=== PATIENT | female | born 2000 | race Caucasian/White ===

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

== ENCOUNTER 2022-12-29 11:24 | Emergency (ER) | payer MEDICAID, SELFPAY ==
[2022-12-29 11:25] VITALS: BP 133/78; PULSE 105; RESP 18; TEMP 36.2; O2SAT 100; BMI 24.2
--- NOTE | 2022-12-29 11:46 | EKG12_ITS ---
Test Reason : CP Blood Pressure : / mmHG Vent. Rate : 096 BPM Atrial Rate : 096 BPM P-R Int : 134 ms QRS Dur : 072 ms QT Int : 334 ms P-R-T Axes : 047 049 024 degrees QTc Int : 421 ms Normal sinus rhythm Septal infarct , age undetermined Abnormal ECG Confirmed by JHONATAN BOWENS, DEZ ([id number]), editor at large CRISTY SILVER ([id number]) on 01/01/2023 1:54:59 PM Referred By: ABUNDIO Confirmed By:DEZ ISRAEL MD
--- NOTE | 2022-12-29 11:48 | EDS_ITS ---
HPI History of Present Illness Chief Complaint: Chest Pain Informant: patient Narrative Narrative: Patient presents with chest pain. Patient states that she has had a soreness or tightness across her anterior chest for about 3 days. It is never gone away. It is a little bit worse with a deep breath. She is not actually short of breath but taking a deep breath does increase the pain. She cannot think of any injury. She has no palpitations. No coughing. She has had some mild URI symptoms but not the cough. No hemoptysis. No nausea vomiting. No back pain at any time. She states sometimes her whole body feels tight. The symptoms have never gone away. She has no high blood pressure diabetes or cholesterol. She does not know her family history as she is adopted. She has not had any recent travel surgery immobilization or personal history of DVT or PE. She has no leg pain or swelling. Patient does get aches and pains occasionally and sees chiropractor but has no known cause for this. She reportedly had stress test and echo several years ago but not exactly sure of the results. I looked on our system and do not find these [facility] Medical History Anxiety Asthma Back pain Cardiology follow-up encounter History of ganglion cyst History of pain when walking History of stress test Hx of echocardiogram Non-smoker Septal defect, heart Home Medications albuterol sulfate 90 mcg/actuation aerosol inhaler 2 puff IH Q4H PRN PRN Wheezing 05/25/20 [History Last Taken Unknown] Allergy/AdvReac Type Severity Reaction Status Date / Time No Known Allergies Allergy Verified 12/06/21 11:32 Family History adopted Social History (Updated 12/29/22 @ 13:10 by Izzy Ornelas) adopted: Yes Smoking Status: Never smoker ROS ROS ED Constitutional Constitutional ED: Denies chills, fever(s) or sweats ENT ENT ED: Reports rhinorrhea and other Details: Mild nasal congestion and rhinorrhea. ; Denies sore throat Cardiovascular Cardiovascular: Reports as per HPI Respiratory/Chest Respiratory/Chest: Denies cough or dyspnea Gastrointestinal Gastrointestinal: Denies diarrhea, nausea or vomiting Genitourinary Genitourinary ED: Denies hematuria Musculoskeletal Musculoskeletal: Reports myalgias; Denies back pain or neck pain Integumentary Denies Abrasions or rash Neurologic Neurologic: Denies headache(s), paresthesias or weakness Endocrine Endocrinology: Denies polydipsia or polyuria Allergic/Immunologic Allergic/Immunologic ED: Denies urticaria EXAM Physical Exam Narrative Exam Narrative: Patient is awake alert no acute distress. She is on the phone sitting comfortably in bed when I walked in the room. She looks nontoxic. HEENT shows no trauma or pallor. Mucous membranes are moist. Eyes show no icterus or pallor. Lungs are completely clear. There is no chest wall tenderness. There is no apparent pain with a deep breath watching the patient. But she does state that it is a little sore when she takes a deep breath. Her heart is regular with a rate of about 90-95. I do not hear any muffled tones or murmur or gallop. Peripheral pulses are equal and normal x4. Abdomen is soft and completely nontender. Normal bowel sounds and nondistended shows no CVA or suprapubic tenderness Back shows no back or spinal tenderness Extremities show no edema or cords. No mottling. No asymmetry. No tenderness along deep venous system or distended veins. Neurologically she is awake alert appropriate and looks calm. Const Vital Signs: 12/29/22 11:25 12/29/22 13:08 Temperature 97.2 F L Temperature Source Temporal Pulse Rate 105 H 87 Respiratory Rate 18 Blood Pressure 133/78 H Blood Pressure Mean 96 Pulse Ox 100 97 Oxygen Delivery Method Room Air MDM MDM MDM Narrative Medical decision making narrative: My independent interpretation of the patient's single view chest x-ray shows no pneumothorax infiltrate abnormal mediastinum or cardiac silhouette. Radiology's report is normal x-ray examination of the chest. CBC shows mild elevation white count. This is nonspecific. D-dimer is unmeasurable below are the lowest level. Troponin is negative also. Electrolytes are normal other than potassium at 3.2 which should self correct with diet. I went talk to the patient again. Her mother is here. Her mother states she has had cold type flu symptoms. Its likely the source of her symptoms but she is eating and drinking and feeling well and not febrile. I think Tylenol rest is appropriate. We did discussed reasons to return that would include worsening pain, lightheadedness, passing out or other acute process. Even though her first heart rate was elevated at 105, she has no known risk factor for pulmonary embolus, no hemoptysis, no tachypnea or hypoxia. Repeat heart rate is normal. D-dimer is negative. I do not think that a CT angiogram of the chest is needed for these reasons. Lab Data Labs: Laboratory Results - last 24 hr 12/29/22 12/29/22 12/29/22 12:15 12:15 12:15 WBC 15.4 H RBC 4.64 Hgb 13.8 Hct 40.6 MCV 87.5 MCH 29.7 MCHC 34.0 RDW Std Deviation 38.2 RDW Coeff of Lesa 11.9 Plt Count 179 MPV 9.6 Immature Gran % (Auto) 0.600 Neut % (Auto) 81.6 H Lymph % (Auto) 10.4 L [place] % (Auto) 6.6 Eos % (Auto) 0.5 Baso % (Auto) 0.3 Absolute Neuts (auto) 12.6 H Absolute Lymphs (auto) 1.60 Nucleated RBC % 0 D-Dimer Quant (PE/DVT) < 0.27 L Sodium 138 Potassium 3.2 L Chloride 103 Carbon Dioxide 26.0 Anion Gap 9 BUN 11 Creatinine 0.73 Estim Creat Clear Calc 106.15 Est GFR (MDRD) Af Amer 130 Est GFR (MDRD) Non-Af 108 BUN/Creatinine Ratio 15.0 Glucose 89 Calcium 9.1 Troponin I High Sens < 3 L Radiography Diagnostic Testing: Clinical Impression(s) from Imaging Studies Chest X-Ray 12/29/22 12:20 IMPRESSION: Normal x-ray examination of the chest. Electronically Signed: Jonny Portillo MD at 12:34 EST , EKG Initial EKG: Comments: My independent interpretation of the patient's EKG done for chest pain shows a normal sinus rhythm with overall rate of 96. No ectopy. No acute ST elevation or depression. OR interval, QRS duration and QTc are normal. Discharge Plan Triage Chief Complaint: Chest Pain ED Provider: Kirk Gregory Dx/Rx/DC Orders Clinical Impression: Chest pain, URI (upper respiratory infection) Instructions: ED Chest Pain, Uncertain Cause Prescriptions: No Action albuterol sulfate 90 mcg/actuation HFA aerosol inhaler 2 puff IH Q4H PRN PRN (Reason: Wheezing) Label Comments: inhale 2 puffs by mouth and INTO THE LUNGS every 4 hours if neede... (REFER TO PRESCRIPTION NOTES). Primary Care Provider: Clinton Sal Referrals: Lia Shell MD [Non-Staff] - 3-5 Days if not improving Disposition Disposition: Home, Self Care
--- NOTE | 2022-12-29 12:20 | RAD_ITS ---
STUDY: X-RAY CHEST REASON FOR EXAM: Female, 22 years old. Chest pain TECHNIQUE: Single AP portable view of the chest. COMPARISON: None. FINDINGS: EKG electrodes are seen. The lungs are clear and expanded. There is no demonstrated pleural abnormality. Normal size heart. Normal mediastinum and bhavani. Normal visualized pulmonary arteries. Normal visualized aortic arch and descending thoracic aorta. Normal visualized thoracic spine. Normal visualized ribs, clavicles, and shoulders. There is no demonstrated abnormality of the visualized soft tissue structures of the upper abdomen. RAD/Chest 1 View (Portable) IMPRESSION: Normal x-ray examination of the chest. Electronically Signed: Jonny Portillo MD at 12:34 EST ,
[2022-12-29 12:22] LABS: Absolute Neutrophil Count 12.6 X10^3/uL (2.0-7.7); Basophil# 0.04 X10^3/uL; Basophil% 0.3 % (0-1); Eosinophil# 0.07 X10^3/uL; Eosinophils% 0.5 % (0-5); Hematocrit 40.6 % (37-47); Hemoglobin 13.8 g/dL (12.0-15.0); Lymphocyte % 10.4 % (19-41); Mean Corpuscular Hgb 29.7 pg (27.0-32.0); Mean Corpuscular Volume 87.5 fL (81-99); Mean Platelet Vol. 9.6 fl (6.2-12.0); Monocyte# 1.02 X10^3/uL; Monocyte% 6.6 % (0-10); NRBC Flagged by Analyzer 0 % (0-5); Neutrophil % 81.6 % (47-70); Platelet Count 179 K/mm3 (150-450); RBC Distribution Width CV 11.9 % (11.6-14.6); RBC Distribution Width SD 38.2 fl (35.1-43.9); Red Blood Count 4.64 M/mm3 (4.2-5.4); White Blood Count 15.4 K/mm3 (4.4-11.0)
[2022-12-29 12:40] LABS: D-Dimer Quantitative (DVT/PE) < 0.27 FEU/ug/m (0.27-0.49)
[2022-12-29 12:50] LABS: Anion Gap 9 (5-15); BUN 11 mg/dL (7-18); Calcium,Total 9.1 mg/dL (8.5-10.1); Chloride 103 mmol/L (98-107); Creatinine, Serum 0.73 mg/dL (0.55-1.02); EST Glomerular Filtration Rate 108 mL/min (>60); Est Glom Filt Rate - Afr Amer 130 mL/min (>60); Estimated Creatinine Clearance 106.15 ml/min; Glucose 89 mg/dL (74-106); Potassium 3.2 mmol/L (3.5-5.1); Sodium Level 138 mmol/L (136-145); Troponin-I HS < 3 pg/mL (3.0-54.0)
[2022-12-29 13:08] VITALS: PULSE 87; O2SAT 97
== END 2022-12-29 13:28 | disposition home or self-care (01) ==
PROVIDERS: Emergency Provider Emergency Medicine; PCP Family Medicine; Visit Provider Emergency Medicine
DX: R07.9 Chest pain, unspecified (principal); J06.9 Acute upper respiratory infection, unspecified; J45.909 Unspecified asthma, uncomplicated; Z79.899 Other long term (current) drug therapy
CPT/HCPCS: 71045; 80048; 84484; 85025; 85379; 93005; 99284

== ENCOUNTER → 2023-01-23 | Outpatient (CLI) | payer MEDICAID, SELFPAY ==
[2023-01-23 09:54] LABS: Absolute Lymphocyte Count 2.66 X10^3/uL (0.83-4.51); Absolute Neutrophil Count 4.6 X10^3/uL (2.0-7.7); Basophil# 0.03 X10^3/uL; Basophil% 0.4 % (0-1); Eosinophil# 0.14 X10^3/uL; Eosinophils% 1.7 % (0-5); Hematocrit 41.4 % (37-47); Hemoglobin 13.9 g/dL (12.0-15.0); Lymphocyte # 2.66 X10^3/ul (0.83-4.51); Lymphocyte % 32.8 % (19-41); Mean Corp Hgb Conc 33.6 g/dL (32-36); Mean Corpuscular Hgb 29.5 pg (27.0-32.0); Mean Corpuscular Volume 87.9 fL (81-99); Monocyte# 0.66 X10^3/uL; Monocyte% 8.1 % (0-10); NRBC Flagged by Analyzer 0 % (0-5); Neutrophil # 4.57 X10^3/uL (2.7-7.7); Neutrophil % 56.5 % (47-70); Platelet Count 260 K/mm3 (150-450); RBC Distribution Width CV 12.2 % (11.6-14.6); RBC Distribution Width SD 39.1 fl (35.1-43.9); Red Blood Count 4.71 M/mm3 (4.2-5.4); White Blood Count 8.1 K/mm3 (4.4-11.0)
[2023-01-23 10:30] LABS: Anion Gap 6 (5-15); BUN 13 mg/dL (7-18); BUN/Creat Ratio 17.5 RATIO (10-20); Calcium,Total 8.9 mg/dL (8.5-10.1); Chloride 106 mmol/L (98-107); Cholesterol 216 mg/dL (200); Creatinine, Serum 0.74 mg/dL (0.55-1.02); EST Glomerular Filtration Rate 106 mL/min (>60); Est Glom Filt Rate - Afr Amer 128 mL/min (>60); Glucose 91 mg/dL (74-106); High Density Lipoprotein 56 mg/dL; Potassium 3.8 mmol/L (3.5-5.1); Sodium Level 136 mmol/L (136-145); Triglycerides 69 mg/dL; Very Low Density Lipoprotein 14 mg/dL (5-40)
== END | disposition home or self-care (01) ==
LOC: MTLAB 07:11
PROVIDERS: PCP Family Medicine; Referring Provider Family Medicine; Visit Provider Family Medicine
DX: Z00.00 Encounter for general adult medical examination without abnormal findings (principal)
CPT/HCPCS: 36415; 80048; 80061; 85025

== ENCOUNTER 2023-05-05 13:44 | Emergency (ER) | payer OTHER, MEDICAID, SELFPAY ==
[2023-05-05 13:45] VITALS: BP 113/68; PULSE 90; RESP 14; TEMP 36.6; O2SAT 100; BMI 24.1
--- NOTE | 2023-05-05 14:00 | RAD_ITS ---
INDICATION: injury EXAMINATION/TECHNIQUE: X-RAY - LEFT XR Forearm 2 Views 2 VIEWS COMPARISON: FINDINGS: SOFT TISSUES: No soft tissue swelling or gas. No radiopaque foreign body. BONES/JOINTS: No acute fracture or subluxation.. Normal alignment. Preservation of the joint space.. No sclerotic or destructive changes observed. RAD/Forearm 2 Views IMPRESSION: Negative. Electronically Signed: Elias Urban MD at 14:32 EDT ,
--- NOTE | 2023-05-05 14:00 | EDS_ITS ---
HPI <MYRNA Pavon - Last Filed: 05/05/23 16:24> History of Present Illness Chief Complaint: Upper Extremity Injury Narrative Narrative: Patient presenting today with pain to her left arm that started earlier this afternoon when she was at work and a cow came running towards her and smashed her L arm into a fence. She reports decreased range of motion to her left arm due to pain. She also reports paresthesias in her left fourth and fifth fingers. She did not hit her head and denies other injury. PFSH <MYRNA Pavon - Last Filed: 05/05/23 16:24> [facility] Medical History Anxiety Asthma Back pain Cardiology follow-up encounter History of ganglion cyst History of pain when walking History of stress test Hx of echocardiogram Non-smoker Septal defect, heart Home Medications albuterol sulfate 90 mcg/actuation aerosol inhaler 2 puff IH Q4H PRN PRN Wheezing 05/25/20 [History Last Taken Unknown] Allergy/AdvReac Type Severity Reaction Status Date / Time No Known Allergies Allergy Verified 12/06/21 11:32 Social History adopted: Yes Smoking Status: Current every day smoker tobacco type: e-cigarettes ROS <MYRNA Pavon - Last Filed: 05/05/23 16:24> ROS ED Constitutional Constitutional ED: Denies chills, fever(s) or sweats Eyes Eyes: Denies change in vision Cardiovascular Cardiovascular: Denies chest pain Respiratory/Chest Respiratory/Chest: Denies cough or dyspnea Gastrointestinal Gastrointestinal: Denies abdominal pain, nausea or vomiting Musculoskeletal Musculoskeletal: Reports arthralgias and myalgias; Denies back pain or neck pain Integumentary Denies Abrasions Neurologic Neurologic: Reports paresthesias LUE (L 4th and 5th fingers.); Denies weakness EXAM <MYRNA Pavon - Last Filed: 05/05/23 16:24> Physical Exam Const Vital Signs: 05/05/23 13:45 Temperature 97.8 F Temperature Source Temporal Pulse Rate 90 Respiratory Rate 14 Blood Pressure 113/68 Blood Pressure Mean 83 Pulse Ox 100 Oxygen Delivery Method Room Air Positive well nourished, well developed and no apparent distress General Appearance ED: well developed HEENT Reports normocephalic and head/scalp atraumatic Mouth ED: Yes moist mucous membranes normal Eyes PERRL and EOMs intact bilaterally Neck full ROM and supple Chest Wall inspection of chest normal Resp normal respiratory effort and clear to auscultation bilaterally Cardio regular rate and regular rhythm GI soft to palpation, non-tender, non-distended and no masses Back/Spine normal ROM and normal to inspection Extremity normal to inspection and full ROM Extremity Narrative: Pain to palpation along the length of the left forearm and left upper arm. No pain to palpation to the olecranon process but decreased range of motion to the left elbow due to pain. Intact range of motion to the left shoulder, no pain to palpation to the left shoulder. Radial pulses 2+ and equal bilaterally, good capillary refill, sensation intact. No hematomas, ecchymosis, abrasions, or lacerations. Neuro oriented x3, CN's II-XII intact bilaterally, moves all extremities, no focal motor deficits and no sensory deficits noted Sensorium / Orientation: awake and alert Psych mental status grossly normal and thought process normal Skin no rashes or lesions noted and no wounds [facility] <MYRNA Pavon - Last Filed: 05/05/23 16:24> [facility] Narrative Medical decision making narrative: Patient presenting with pain to her left after a cow ran into her arm, pushing it against a fence. She is well-appearing and in no acute distress. She did not hit her head and denies any other injury. Pain to palpation along the left forearm and left upper arm. X-rays obtained of the left forearm and left humerus to rule out fracture and are negative. Elbow was unremarkable on x-ray. She does not have any shoulder involvement. She has been given RICE instructions and is to limit the use of her left arm while at work for the next 3 days or until the pain improves. She is to follow-up with her PCP and alternate Tylenol and ibuprofen for pain. She will be discharged home in stable condition and is comfortable with plan. Radiography X-Ray: Read by ED Physician and Read by Radiologist <Dr. Kirk Gregory MD - Last Filed: 05/05/23 16:48> [facility] Treatment and Re-Evaluation Narrative: I have personally performed a face to face assessment of the patient and have reviewed the YUNIOR Note. I performed a substantive portion of the visit including all aspects of the following. My barlow findings include: History: Patient had her left arm caught between a cow and a gate. No injury to the chest head lower extremities or abdomen. She really has soreness kind of in her whole left arm. She does have tingling but not numbness or weakness in her left small and ring finger. Exam: Patient is awake alert sitting comfortably in bed. No acute distress. No sign of contusion or swelling at this point. No spinal or chest wall tenderness. She has mild diffuse tenderness relief from her shoulder all the way down to her distal forearm. No snuffbox tenderness. There is no deformity. She does have a positive Tinel's at the elbow over the ulnar nerve that exacerbates or tingling. But there is no sign of weakness or sensory loss. Medical Decision Making: X-rays are done that showed no acute process. I explained the patient does have contusion and neuropraxia of the nerve but this should resolve. Ice rest and [id number] meds should be appropriate. Discharge Plan Triage Chief Complaint: Upper Extremity Injury ED Midlevel Provider: Sera Woodward ED Provider: Kirk Gregory Dx/Rx/DC Orders Clinical Impression: Contusion of arm, left, Ulnar nerve injury Instructions: ED Contusion, Upper Extremity Prescriptions: No Action albuterol sulfate 90 mcg/actuation HFA aerosol inhaler 2 puff IH Q4H PRN PRN (Reason: Wheezing) Patient Comments: inhale 2 puffs by mouth and INTO THE LUNGS every 4 hours if neede... (REFER TO PRESCRIPTION NOTES). Primary Care Provider: Clinton Sal Referrals: Clinton Sal MD [Primary Care Provider] - 3-5 Days if not improving Activity Restrictions/Additional Instructions: Ice your arm several times a day for the next few days, alternate Tylenol and ibuprofen for pain as needed. Disposition Disposition: Home, Self Care Discharge Date/Time: 05/05/23 15:10
--- NOTE | 2023-05-05 14:00 | RAD_ITS ---
EXAM: XR LEFT HUMERUS, 2 OR MORE VIEWS CLINICAL INDICATION: injury TECHNIQUE: Frontal and lateral views of the left humerus. COMPARISON: No relevant prior studies available. FINDINGS: BONES/JOINTS: Unremarkable. No acute fracture. No subluxation. Normal alignment. Preservation of the joint space. No sclerotic or destructive changes observed. SOFT TISSUES: Unremarkable. No soft tissue swelling or gas. No radiopaque foreign body. RAD/Humerus min 2 Views IMPRESSION: Negative left humerus x-rays. Electronically Signed: Elias Urban MD at 14:40 EDT ,
[2023-05-05] MEDS: Acetaminophen 325 MG Tablet 650 MG PO (14:02)
== END 2023-05-05 15:10 | disposition home or self-care (01) ==
PROVIDERS: Emergency Provider Emergency Medicine; PCP Family Medicine; Visit Provider Emergency Medicine
DX: S40.022A Contusion of left upper arm, initial encounter (principal); F17.290 Nicotine dependence, other tobacco product, uncomplicated; X58.XXXA Exposure to other specified factors, initial encounter
CPT/HCPCS: 73060; 73090; 99283

== ENCOUNTER 2023-05-06 15:00 | Emergency (ER) | payer OTHER, MEDICAID, SELFPAY ==
[2023-05-06 15:01] VITALS: BP 113/68; PULSE 69; RESP 14; TEMP 36.6; O2SAT 98; BMI 23.9
--- NOTE | 2023-05-06 15:04 | EX.ED.UPPERE ---
HPI <MYRNA Morales - Last Filed: 05/06/23 15:33> History of Present Illness Chief Complaint: Upper Extremity Injury Narrative Narrative: 22-year-old female was seen here yesterday for a left arm injury when a cow hit her left arm causing it to strike a fence in an extended position. She had x-rays which were negative. She has been wearing a sling and taking Aleve but the pain and swelling is worse today. She feels tingling in all her fingers. No weakness. She states she is ambidextrous. PFSH <MYRNA Morales - Last Filed: 05/06/23 15:33> [facility] Medical History Anxiety Asthma Back pain Cardiology follow-up encounter History of ganglion cyst History of pain when walking History of stress test Hx of echocardiogram Non-smoker Septal defect, heart Home Medications albuterol sulfate 90 mcg/actuation aerosol inhaler 2 puff IH Q4H PRN PRN Wheezing 05/25/20 [History Last Taken Unknown] hydrocodone-acetaminophen 5-325mg 5mg-325mg 1 tab PO Q8H PRN PRN pain 2 days #6 tabs 05/06/23 [Rx Last Taken Unknown] ondansetron 4 mg disintegrating tablet 4 mg PO Q8H PRN PRN Nausea #6 tabs 05/06/23 [Rx Last Taken Unknown] Allergy/AdvReac Type Severity Reaction Status Date / Time No Known Allergies Allergy Verified 05/06/23 15:01 Social History adopted: Yes Smoking Status: Former smoker ROS <MYRNA Morales - Last Filed: 05/06/23 15:33> ROS ED ROS Narrative Constitutional: Negative for fever, chills, malaise. Neuro: Negative for motor/sensory dysfunction. Skin: Negative for wound. Musc: Positive for left elbow pain, swelling, trauma. Heme: Negative for easy bruising, bleeding, lymphadenopathy. EXAM <MYRNA Morales - Last Filed: 05/06/23 15:33> Physical Exam Narrative Exam Narrative: CONST: Patient sitting in no acute distress. EYES: Normal inspection. NECK: Normal inspection. RESP: No respiratory distress, CTAB. CVS: Regular rate and rhythm, no murmur, no gallop. SKIN: Color normal, no rash, warm, dry, intact. EXTREMITIES: Soft tissue swelling of the left elbow and forearm. No erythema or bruising. Full passive ROM of all joints, active elbow and wrist movement limited by pain. Normal motor and sensory function median radial and ulnar distributions, 2+ radial pulse and brisk cap refill. Compartments are soft. NEURO: Oriented x4. PSYCH: Normal affect. Const Vital Signs: 05/06/23 15:01 Temperature 98 F Temperature Source Temporal Pulse Rate 69 Respiratory Rate 14 Blood Pressure 113/68 Blood Pressure Mean 83 Pulse Ox 98 Oxygen Delivery Method Room Air [facility] <MYRNA Morales - Last Filed: 05/06/23 15:33> [facility] Narrative Medical decision making narrative: History gathered from: Patient and family member Patient had traumatic left arm injury yesterday had negative x-rays of her humerus and forearm and is presenting with increased pain and swelling in the extremity. She is tender over the elbow down to the wrist with no deformity. Neurovascularly intact. No signs of compartment syndrome. An Lambert wrap was applied and I prescribed [place] for breakthrough pain but recommended continued use of NSAIDs. She was discharged in stable condition. <Dr. Joe Worthy, - Last Filed: 05/06/23 17:42> [facility] Narrative Medical decision making narrative: History gathered from: Patient and family member Patient had traumatic left arm injury yesterday had negative x-rays of her humerus and forearm and is presenting with increased pain and swelling in the extremity. She is tender over the elbow down to the wrist with no deformity. Neurovascularly intact. No signs of compartment syndrome. An Lambert wrap was applied and I prescribed [place] for breakthrough pain but recommended continued use of NSAIDs. She was discharged in stable condition. Attending note: Patient seen and evaluated with operational risk consultant. I perform my own [id number] evaluation. I agree with the plan of work-up. Increasing pain swelling left forearm and hand. Seen yesterday for crush injury between a cow and a gait. X-rays x-rays negative. Took Aleve yesterday. Exam with swelling in the hand is soft compartments of the forearm. Neuro vas intact distally. Lambert wrap provided due to swelling. She will continue NSAIDs. Discussed continued elevation with return precautions. All questions were answered. Discharge Plan Triage Chief Complaint: Upper Extremity Injury ED Midlevel Provider: Angela Guerrero ED Provider: Joe Worthy Dx/Rx/DC Orders Clinical Impression: Contusion of arm, left Instructions: Bruises (Contusions) Prescriptions: New hydrocodone-acetaminophen 5-325 mg tablet 1 tab PO Q8H PRN PRN (Reason: pain) 2 Days Qty: 6 0RF ondansetron 4 mg tablet,disintegrating 4 mg PO Q8H PRN PRN (Reason: Nausea) Qty: 6 0RF No Action albuterol sulfate 90 mcg/actuation HFA aerosol inhaler 2 puff IH Q4H PRN PRN (Reason: Wheezing) Patient Comments: inhale 2 puffs by mouth and INTO THE LUNGS every 4 hours if neede... (REFER TO PRESCRIPTION NOTES). Primary Care Provider: Clinton Sal Referrals: Clinton Sal MD [Primary Care Provider] - Activity Restrictions/Additional Instructions: I would continue Aleve. I prescribed [place] for breakthrough severe pain. Ice and rest. If not improving in 7 to 10 days follow-up with your primary care doctor. Disposition Disposition: Home, Self Care Discharge Date/Time: 05/06/23 15:44
[2023-05-06] MEDS: Ondansetron ODT 4 MG Tablet PO (15:21)
[2023-05-06] MEDS: HYDROcodone Bitartrate/Apap 5/325 Tablet PO (15:21)
== END 2023-05-06 15:44 | disposition home or self-care (01) ==
LOC: ED 15:42
PROVIDERS: Emergency Provider Emergency Medicine; PCP Family Medicine; Visit Provider Emergency Medicine
DX: S40.022A Contusion of left upper arm, initial encounter (principal); Z87.891 Personal history of nicotine dependence; X58.XXXA Exposure to other specified factors, initial encounter
CPT/HCPCS: 99283

== ENCOUNTER → 2023-12-24 | Outpatient (CLI) | payer MEDICAID, SELFPAY ==
--- NOTE | 2023-12-24 11:41 | RAD_ITS ---
STUDY: X-RAY - LEFT ANKLE REASON FOR EXAM: Female, 23 years old. Injury. Pain. TECHNIQUE: 3 view(s) of the ankle. COMPARISON: None. FINDINGS: Normal visualized distal tibia and fibula. Normal medial and lateral malleoli. Normal tibiotalar articulation and ankle mortise. Normal visualized talus and calcaneus. The visualized subtalar, talonavicular, calcaneocuboid and tarsal articulations are normal. The soft tissue structures are normal. RAD/Ankle min 3 Views IMPRESSION: Normal x-ray examination of the ankle. Electronically Signed: Mark Celaya MD at 9:35 EST ,
== END | disposition home or self-care (01) ==
PROVIDERS: PCP Family Medicine; Referring Provider Family Medicine; Visit Provider Family Medicine
DX: S99.922A Unspecified injury of left foot, initial encounter (principal)
CPT/HCPCS: 73610

== ENCOUNTER → 2024-03-06 | Outpatient (CLI) | payer MEDICAID, SELFPAY ==
[2024-03-06 16:11] LABS: Absolute Lymphocyte Count 1.76 X10^3/uL (0.83-4.51); Absolute Neutrophil Count 5.5 X10^3/uL (2.0-7.7); Basophil# 0.03 X10^3/uL; Basophil% 0.4 % (0-1); Eosinophil# 0.07 X10^3/uL; Eosinophils% 0.9 % (0-5); Hematocrit 39.4 % (37-47); Hemoglobin 13.4 g/dL (12.0-15.0); Lymphocyte # 1.76 X10^3/ul (0.83-4.51); Lymphocyte % 22.6 % (19-41); Mean Corpuscular Volume 88.1 fL (81-99); Mean Platelet Vol. 10.7 fl (6.2-12.0); Monocyte# 0.45 X10^3/uL; Monocyte% 5.8 % (0-10); NRBC Flagged by Analyzer 0 % (0-5); Neutrophil # 5.46 X10^3/uL (2.7-7.7); Neutrophil % 69.9 % (47-70); Platelet Count 212 K/mm3 (150-450); RBC Distribution Width CV 12.3 % (11.6-14.6); RBC Distribution Width SD 39.6 fl (35.1-43.9); Red Blood Count 4.47 M/mm3 (4.2-5.4); White Blood Count 7.8 K/mm3 (4.4-11.0)
[2024-03-06 16:30] LABS: Anion Gap 4 (5-15); BUN 9 mg/dL (7-18); BUN/Creat Ratio 13.1 RATIO (10-20); Calcium,Total 8.8 mg/dL (8.5-10.1); Chloride 110 mmol/L (98-107); Creatinine, Serum 0.68 mg/dL (0.55-1.02); EST Glomerular Filtration Rate 115 mL/min (>60); Est Glom Filt Rate - Afr Amer 139 mL/min (>60); Glucose 80 mg/dL (74-106); Sodium Level 138 mmol/L (136-145)
== END | disposition home or self-care (01) ==
LOC: MFPLAB 11:38
PROVIDERS: PCP Family Medicine; Visit Provider Family Medicine
DX: R55 Syncope and collapse (principal)
CPT/HCPCS: 36415; 80048; 85025

== ENCOUNTER → 2024-10-02 | Outpatient (CLI) | payer MEDICAID, SELFPAY ==
--- NOTE | 2024-10-02 09:47 | RAD_ITS ---
INDICATION: LOWER BACK PAIN EXAMINATION/TECHNIQUE: X-RAY - XR Spine Lumbar 2 or 3 Views COMPARISON: 05/20/2020 FINDINGS: VERTEBRAE: Preserved vertebral body height. No fracture. No spondylolisthesis. Preservation of the normal lumbar lordosis. No significant facet arthropathy. There is a subtle dextroscoliotic curvature at the thoracolumbar junction which may be positional. DISCS: Disc spaces are maintained. INCLUDED ABDOMEN: Included bowel gas pattern is non-obstructive. RAD/Lumbar Spine 2 or 3 Views IMPRESSION: 1. No evidence of lumbar spinal fracture or spondylolisthesis. 2. Subtle rightward convex curvature at the thoracolumbar junction. No underlying soft tissue or vertebral abnormality noted. Electronically Signed: Shorty Weber MD at 1:15 EST ,
== END | disposition home or self-care (01) ==
LOC: MTRAD 09:45
PROVIDERS: PCP Family Medicine; Referring Provider Family Medicine; Visit Provider Family Medicine
DX: M54.50 Low back pain, unspecified (principal)
CPT/HCPCS: 72100

== ENCOUNTER → 2024-11-10 | Outpatient (CLI) | payer MEDICAID, SELFPAY ==
--- NOTE | 2024-11-10 14:20 | CT_ITS ---
STUDY: CTA CHEST REASON FOR EXAM: Female, 23 years old. CHEST PAIN RADIATION DOSAGE (If Supplied By Facility): CTDIvol = ( 5.90 ) mGy, DLP = ( 144.48 ) mGycm TECHNIQUE: The examination was performed with the intravenous administration of IV 100mL Isovue-370. Post-processing of the angiographic images was performed, with multiplanar reformation and 3D reconstruction. Individualized dose optimization techniques were used for this CT. COMPARISON: None. FINDINGS: Normal enhancement of the main pulmonary artery and right and left pulmonary arteries. Normal enhancement of the bilateral peripheral pulmonary arteries. There is no demonstrated pulmonary embolism. Normal thoracic aorta and visualized great vessels. There is no demonstrated aortic dissection. Normal heart and pericardium. Normal mediastinum. Normal hilar regions. Normal visualized trachea and bronchi. The lungs are well expanded. Normal pulmonary parenchyma. Normal pleura. Normal chest wall structures. Normal osseous structures. Normal visualized upper abdomen. CT/CTA Chest W/WO Contrast IMPRESSION: Normal CTA chest examination, without a demonstrated pulmonary embolism or arterial dissection. Electronically Signed: Jonny Portillo MD at 14:50 EST ,
== END | disposition home or self-care (01) ==
LOC: CT 13:09
PROVIDERS: PCP Family Medicine; Referring Provider Family Medicine; Visit Provider Family Medicine
DX: R07.9 Chest pain, unspecified (principal)
CPT/HCPCS: 71275; Q9967; A4216

== ENCOUNTER → 2024-11-10 | Outpatient (CLI) | payer MEDICAID, SELFPAY ==
[2024-11-10 15:57] LABS: Absolute Lymphocyte Count 1.46 X10^3/uL (0.83-4.51); Absolute Neutrophil Count 4.5 X10^3/uL (2.0-7.7); Basophil# 0.02 X10^3/uL; Basophil% 0.3 % (0-1); Eosinophil# 0.09 X10^3/uL; Eosinophils% 1.4 % (0-5); Hematocrit 37.4 % (37-47); Hemoglobin 13.1 g/dL (12.0-15.0); Lymphocyte # 1.46 X10^3/ul (0.83-4.51); Lymphocyte % 22.4 % (19-41); Mean Corpuscular Hgb 30.2 pg (27.0-32.0); Mean Corpuscular Volume 86.2 fL (81-99); Mean Platelet Vol. 10.3 fl (6.2-12.0); Monocyte# 0.42 X10^3/uL; Monocyte% 6.4 % (0-10); NRBC Flagged by Analyzer 0 % (0-5); Neutrophil # 4.51 X10^3/uL (2.7-7.7); Platelet Count 224 K/mm3 (150-450); RBC Distribution Width SD 37.7 fl (35.1-43.9); Red Blood Count 4.34 M/mm3 (4.2-5.4); White Blood Count 6.5 K/mm3 (4.4-11.0)
[2024-11-10 16:14] LABS: Anion Gap 5 (5-15); BUN 12 mg/dL (7-18); BUN/Creat Ratio 18.2 RATIO (10-20); Calcium,Total 8.8 mg/dL (8.5-10.1); Chloride 108 mmol/L (98-107); Creatinine, Serum 0.66 mg/dL (0.55-1.02); EST Glomerular Filtration Rate 119 mL/min (>60); Est Glom Filt Rate - Afr Amer 144 mL/min (>60); Glucose 78 mg/dL (74-106); Potassium 3.4 mmol/L (3.5-5.1); Sodium Level 137 mmol/L (136-145)
== END | disposition home or self-care (01) ==
LOC: MFPLAB 12:36
PROVIDERS: PCP Family Medicine; Referring Provider Family Medicine; Visit Provider Family Medicine
DX: R07.9 Chest pain, unspecified (principal)
CPT/HCPCS: 36415; 71275; 80048; 85025; Q9967; A4216

== ENCOUNTER 2025-01-22 17:47 | Emergency (ER) | payer MEDICAID, SELFPAY ==
[2025-01-22 17:47] VITALS: BP 136/88; PULSE 131; RESP 18; TEMP 36.6; O2SAT 99; BMI 21.3
--- NOTE | 2025-01-22 18:19 | EDS_ITS ---
HPI History of Present Illness Chief Complaint: Back PFSH PFS Medical History Hearing loss Heart murmur POTS (postural orthostatic tachycardia syndrome) Congenital heart anomaly Dizziness Syncope Perimembranous ventricular septal defect BMI 21.0-21.9, adult ADD (attention deficit disorder) Fatigue SOB (shortness of breath) Chest pain Anxiety Back pain Asthma History of pain when walking Septal defect, heart History of ganglion cyst Home Medications ?Medication ?Instructions ?Recorded ?Last Taken ?Type albuterol sulfate 90 mcg/actuation 2 puff IH Q4H PRN P RN Wheezing 05/25/20 Unknown History aerosol inhaler sertraline 25 mg tablet 25 mg PO QDAY 11/21/24 Unkno wn History dextroamphetamine-amphetamine ER 10 mg PO QDAY PRN ADH D 12/12/24 Unknown History 10 mg 24hr capsule,extend release (Adderall XR) sodium chloride PO BID 12/12/24 Unknown Hist ory sodium chloride liquid PO 12/12/24 Unknown History orphenadrine citrate 100 mg 100 mg PO BID PRN back santhosh n 5 days 01/22/25 Unknown Rx tablet,extended release #10 tabs prednisone 20 mg tablet 20 mg PO DAILY 5 days #5 tab s 01/22/25 Unknown Rx Allergy/AdvReac Type Severity Reaction Status Date / Time No Known Allergies Allergy Verified 01/22/25 19:05 Surgical History H/O medial meniscus repair of left knee History of surgical removal of ganglion cyst Social History adopted: Yes Smoking Status: Never smoker Electronic Cigarette Use: with nicotine alcohol intake: never substance use type: does not use caffeine: Yes Type: tea EXAM Physical Exam Const Vital Signs: 01/22/25 17:47 01/22/25 18:52 01/22/25 19:04 Temperature 97.9 F Temperature Source Temporal Pulse Rate 131 H 118 H 105 H Respiratory Rate 18 16 15 Blood Pressure 136/88 H Blood Pressure Mean 104 Pulse Ox 99 100 99 Oxygen Delivery Method Room Air 01/22/25 20:26 Temperature 97.1 F L Temperature Source Pulse Rate 98 Respiratory Rate 14 Blood Pressure 132/78 H Blood Pressure Mean 96 Pulse Ox 99 Oxygen Delivery Method [facility] Narrative Medical decision making narrative: HISTORY OF PRESENT ILLNESS: 24-year-old female presents with back pain. The patient states she is chronic back pain. Notes ache is exacerbated by small movements. She notes this afternoon she twisted and felt sharp severe pain in the low back muscle left side. Pain radiates down the left leg. Shooting and burning. It is consistent with prior exacerbations. No falls or trauma noted. No urinary complaints noted. No fevers. No history of liver or kidney failure. No history of back surgery. No loss of movement or sensation. Patient denies any saddle anesthesia, urinary retention, bowel or bladder incontinence, lower extremity weakness, fever or IV drug use, no recent spinal manipulation or surgery, no recent urinary catheterization. REVIEW OF SYSTEMS: Pertinent positives: Back pain Pertinent negatives: Urinary complaints, abdominal pain, flank pain PHYSICAL EXAM: Nursing triage notes reviewed, Vital signs reviewed Constitutional: please see mdm HENT: MMM Eyes: Pupils equal round and reactive to light, Extraocular muscles intact Neck: No stridor, no JVD, full neck ROM Abdomen: Soft, there is no tenderness, rigidity, rebound or guarding, no obvious peritoneal signs, no palpable pulsatile abdominal masses, no auscultated abdominal bruit : No CVAT Back: No midline step-offs or deformities. TTP over left lower lumbar musculature. Extremities: No edema Neuro: Intact sensation L1-S1 dermatomal distributions. Intact 5/5 strength in hip flexion (T12-L3). Knee extension (L2-L4). Ankle dorsiflexion (L4-L5). Ankle plantar flexion (S1). Great toe extension (L5). 2+ patellar and Achilles DTRs. Skin: No rash or lesions noted MEDICAL DECISION MAKING: Chief Complaint: Back pain External records reviewed: Reviewed prior imaging studies: Reviewed lumbar spine x-ray from September 2024 which showed no evidence of lumbar spinal fracture or spondylolisthesis no fracture. Noted preserved vertebral body height. Factors affecting care: Chronic back pain Social determinants of health: Denies IV drug use History obtained from others: none Consults: none [facility] Narrative: The patient was initially tachycardic rate of 131 otherwise hemodynamically stable, afebrile and nontoxic-appearing. Exam with no obvious focal lower extremity neurovascular deficits. I considered the following differential diagnosis: Sciatica, space-occupying lesion of the spine. Patient's history and clinical exam not consistent with space-occupying lesion of the spine. She had no back pain red flags. She has acute on chronic pain. I suspect she is having mechanical back pain in the form of sciatic. I treated the patient with oral anti-inflammatories including ibuprofen and prednisone. I gave her muscle relaxants and formal Norflex as well as Tylenol. Also gave lidocaine patch. On reevaluation after pain medication his heart rate improved to 98. Discharge with similar medications. Encourage close spine follow-up. Strict return precautions were discussed. The patient presented complaining of back pain. There was no evidence to support genitourinary etiology. There is also no evidence to suggest vascular pathology such as AAA dissection. No fevers or other evidence to suspect infectious processes, abscess, osteomyelitis etc. The patient?s neurological exam is normal with normal motor and sensory. There is no saddle paresthesias reported and no bowel or bladder incontinence or retention. I suspect the pain is mechanical in nature. Clinical suspicion, plan of care and management was discussed with the patient. The patient was instructed to follow up with their health care provider. The patient was also instructed to return if the pain worsened, changed, or developed weakness or bowel or bladder trouble. The patient agreed with plan. I completed a structured, evidence-based clinical evaluation to screen for acute non-traumatic spinal emergencies. The patient has a normal detailed neurologic exam and red flag historical factors were negative. The evidence indicates that the patient is very low risk for an acute spinal emergency and this is consistent with my clinical intuition. The risk of further workup is higher than the likelihood of the patient having a spinal epidural abscess or other dangerous emergency spinal condition. It is, therefore, in the patient?s best interest not to do additional emergent testing at this time. Shared Decision-Making I have discussed with the patient my clinical impression and the result of an evidence-based clinical evaluation to screen for spinal epidural abscess and other spinal emergencies, as well as the risk of further testing and hospitalization. The evidence shows that the risk for an acute spinal emergency is less than 1%. Although the risk of an acute spinal emergency has not been completely eliminated, the risks of further testing likely exceed any potential benefit, and the patient agrees with not pursuing further emergent evaluation for causes of back pain at this time. Total critical care time today provided was at least 0 minutes. This excludes separately billable procedures. Critical care time (if documented) is secondary to the patient having high probability of clinically significant/life threatening deterioration in the patient's condition which required my urgent intervention. Impression: 1. Acute on chronic back pain 2. Sciatica Dispo: Discharge home This note was generated with [facility] EHR dictation software. It may contain incorrect words, spelling, and punctuation that were not noted in review of the chart prior to signing. Discharge Plan Triage Chief Complaint: Back ED Provider: Renato Daniel Dx/Rx/DC Orders Clinical Impression: Back pain Instructions: ED Sciatica Prescriptions: New prednisone 20 mg tablet 20 mg PO DAILY 5 Days Qty: 5 0RF orphenadrine citrate 100 mg tablet extended release 100 mg PO BID PRN (Reason: back pain) 5 Days Qty: 10 0RF No Action sertraline 25 mg tablet 25 mg PO QDAY dextroamphetamine-amphetamine [Adderall XR] 10 mg capsule,extended release 24hr 10 mg PO QDAY PRN (Reason: ADHD) sodium chloride PO BID sodium chloride liquid PO Rx Instructions: Liquid IV albuterol sulfate 90 mcg/actuation HFA aerosol inhaler 2 puff IH Q4H PRN PRN (Reason: Wheezing) Patient Comments: inhale 2 puffs by mouth and INTO THE LUNGS every 4 hours if neede... (REFER TO PRESCRIPTION NOTES). Stand Alone Forms: ED Work / School Excuse Primary Care Provider: Clinton Sal Referrals: Casey Perry MD [Med Staff - Active Staff] - Activity Restrictions/Additional Instructions: Thank you for trusting us with your care today! Your history and clinical exam is not consistent with acute emergency of your spine. Please take Tylenol (2 pills, 650 mg), ibuprofen (2 pills, 400 mg) every 6 hours as needed for pain and fever control. Please take prednisone as prescribed. Please take Norflex as prescribed Please go to local pharmacy or drugstore and obtain Salonpas lidocaine patches apply these as well for additional pain control. Please return to the emergency department if your symptoms change or worsen. Please follow with your spinal surgery (Dr. Knowles) for further outpatient evaluation and management. Print Language: [place] Citizen Disposition Disposition: Home, Self Care Discharge Date/Time: 01/22/25 20:27
[2025-01-22 18:52] VITALS: PULSE 118; RESP 16; O2SAT 100
[2025-01-22] MEDS: Acetaminophen 325 MG Tablet 650 MG PO (18:52)
[2025-01-22] MEDS: Lidocaine 5% Patch 1 PATCH TOPICAL (18:52)
[2025-01-22] MEDS: predniSONE 20 MG Tablet 40 MG PO (18:53)
[2025-01-22] MEDS: Ibuprofen 200 MG Tablet 400 MG PO (18:53)
[2025-01-22] MEDS: Orphenadrine 100 MG Tablet PO (18:53)
[2025-01-22 19:04] VITALS: PULSE 105; RESP 15; O2SAT 99
[2025-01-22 20:26] VITALS: BP 132/78; PULSE 98; RESP 14; TEMP 36.2; O2SAT 99
== END 2025-01-22 20:27 | disposition home or self-care (01) ==
PROVIDERS: Emergency Provider Emergency Medicine; PCP Family Medicine; Visit Provider Emergency Medicine
DX: M54.30 Sciatica, unspecified side (principal); G89.29 Other chronic pain; Z79.899 Other long term (current) drug therapy
CPT/HCPCS: 99283

== ENCOUNTER → 2025-01-27 | Outpatient (CLI) | payer MEDICAID, SELFPAY ==
[2025-01-26 09:32] LABS: Absolute Lymphocyte Count 1.78 X10^3/uL (0.83-4.51); Basophil# 0.03 X10^3/uL; Basophil% 0.4 % (0-1); Eosinophils% 1.3 % (0-5); Hematocrit 36.4 % (37-47); Hemoglobin 12.8 g/dL (12.0-15.0); Lymphocyte # 1.78 X10^3/ul (0.83-4.51); Mean Corp Hgb Conc 35.2 g/dL (32-36); Mean Corpuscular Hgb 30.4 pg (27.0-32.0); Mean Corpuscular Volume 86.5 fL (81-99); Mean Platelet Vol. 9.6 fl (6.2-12.0); Monocyte# 0.46 X10^3/uL; Monocyte% 6.2 % (0-10); NRBC Flagged by Analyzer 0 % (0-5); Neutrophil # 5.01 X10^3/uL (2.7-7.7); Neutrophil % 67.6 % (47-70); Platelet Count 194 K/mm3 (150-450); RBC Distribution Width CV 12.2 % (11.6-14.6); RBC Distribution Width SD 38.7 fl (35.1-43.9); Red Blood Count 4.21 M/mm3 (4.2-5.4); White Blood Count 7.4 K/mm3 (4.4-11.0)
[2025-01-26 09:41] LABS: Internal QC Validated? YES +Cl - CLEAR BKGD
[2025-01-26 09:42] LABS: Pregnancy, Serum, hCG Quali. NEGATIVE Negative; Record Kit Lot#, Serum Preg. 899023
[2025-01-26 09:47] LABS: Anion Gap 11 (5-15); BUN 11 mg/dL (4-19); BUN/Creat Ratio 16.5 RATIO (10-20); Calcium,Total 8.8 mg/dL (7.6-11.0); Carbon Dioxide 20.9 mmol/L (21.0-32.0); Chloride 107 mmol/L (98-108); Creatinine, Serum 0.67 mg/dL (0.70-1.20); EST Glomerular Filtration Rate 127 (>60); Glucose 90 mg/dL (70-99); Potassium 3.8 mmol/L (3.3-5.1); Sodium Level 138 mmol/L (133-145)
--- NOTE | 2025-01-28 08:23 | PCM.TILTTABL ---
Staff Staff: Dulce Maria Mazariegos and Lexie Whyte Summary Pre Test Resting HR: 86 Pre Test Resting BP: 131/86 Minimum Test HR: 75 Maximum Test HR: 130 Minimum Test BP: 106/68 Maximum Test BP: 131/86 Reason for Test Termination: Reached Maximum Test Time Physician Tilt Table Report Patient's Physicians Primary Care Physician: Clinton Sla Indications/Diagnosis: Dizziness. Procedure Comments: The patient presented to the noninvasive lab in the postabsorptive nonsedated state. Informed consent was obtained. The resting heart rate was noted to be 86 bpm in sinus rhythm with a blood pressure of 131/86 mmHg. The patient was then put in the 70 degree head upright tilt position. The heart rate increased to a peak of approximately 130 bpm within 10 minutes but no significant change in the blood pressure. Patient complained of hands tingling and eventually some nauseated feeling. Patient remained in this position for approximately 30 minutes with heart rates remaining over 110 bpm. The patient was then put in the recumbent position. The final heart rate was 111 bpm with a blood pressure 114/83 mmHg. Summary: 70 degree head upright tilt table test with heart rate response suggestive of postural orthostatic tachycardia syndrome.
[2025-01-28 08:27] VITALS: BP 106/68; BP 131/86
== END | disposition home or self-care (01) ==
LOC: CVS 10:26
PROVIDERS: PCP Family Medicine; Referring Provider Internal Medicine Cardiovascular Disease; Visit Provider Internal Medicine Cardiovascular Disease
DX: G90.A Postural orthostatic tachycardia syndrome [POTS] (principal); R06.02 Shortness of breath; R55 Syncope and collapse; Q21.9 Congenital malformation of cardiac septum, unspecified; R53.83 Other fatigue
CPT/HCPCS: 36415; 80048; 84703; 85025; 93660; A4216

== ENCOUNTER → 2025-02-16 | Outpatient (CLI) | payer MEDICAID, SELFPAY ==
--- NOTE | 2025-02-16 18:38 | MRI_ITS ---
EXAM: MRI LUMBAR SPINE. CLINICAL HISTORY: CHRONIC BACK PAIN FOR 3 YEARS. COMPARISON: Radiographs on 02/05/2025. TECHNIQUE: Axial and sagittal T1 and T2 weighted images were obtained. Fat suppressed images were also obtained. FINDINGS: There is normal signal intensity from the visualized bone marrow without evidence of replacement or acute fracture. The conus is unremarkable. Straightening of the lumbar lordosis, probably muscular spasm and pain. Mild levoscoliosis apex at L3. Evaluation of the individual levels revealed the following: L5-S1: There is disc space narrowing and disc dehydration. Grade 1 retrolisthesis measuring 3.2 mm. Mild diffuse disc bulge. Superimposed broad-based central/left paracentral disc protrusion measuring 5.4 mm. Mild bilateral facet joint arthropathy. The spinal canal is not narrowed. There is minimal bilateral neural foramina narrowing. L4-5: There is no evidence of disk herniation. The spinal canal is not narrowed. There is no evidence of neural foramina narrowing. L3-4: There is no evidence of disk herniation. The spinal canal is not narrowed. There is no evidence of neural foramina narrowing. L2-3: There is no evidence of disk herniation. The spinal canal is not narrowed. There is no evidence of neural foramina narrowing. L1-2: There is mild diffuse disc bulge. Superimposed broad-based left paracentral disc protrusion measuring 2.3 mm. The spinal canal is not narrowed. There is no evidence of neural foramina narrowing. T12-L1 :There is no evidence of disk herniation. The spinal canal is not narrowed. There is no evidence of neural foramina narrowing. T11-T12: Chronic Schmorl's node formation. Mild diffuse disc bulge. The spinal canal is not narrowed. Minimal bilateral neural foraminal narrowing. Normal visualized paraspinous soft tissue structures. MRI/Spine Lumbar (Routine) IMPRESSION: Degenerative disc disease. Reading [facility]
== END | disposition home or self-care (01) ==
LOC: MRI 11:29
PROVIDERS: PCP Family Medicine; Referring Provider Student in an Organized Health Care Education/Training Program; Visit Provider Student in an Organized Health Care Education/Training Program
DX: M51.369 Other intervertebral disc degeneration, lumbar region without mention of lumbar back pain or lower extremity pain (principal)
CPT/HCPCS: 72148